=== PATIENT | male | born 1950 | race Caucasian/White ===

== ENCOUNTER 2022-08-04 16:18 | Emergency (ER) | payer OTHER ==
[~2022-08-04] VITALS: Ht 182.9 cm; Wt 110.0 kg
[2022-08-04 18:08] LABS: Basophils # (auto) 0.1 10 ^3/uL (0-0.2); Basophils % (auto) 0.7 % (0.0-2.0); Eosinophils # (auto) 0.1 10 ^3/uL (0-0.8); Eosinophils % (auto) 0.6 % (0.0-7.0); Hematocrit 45.3 % (41.0-53.0); Lymphocytes # (auto) 0.8 10 ^3/uL (0.4-5.4); Lymphocytes % (auto) 8.8 % (10.0-50.0); Mean Corpuscular Hemoglobin 29.5 pg (28.0-32.0); Mean Corpuscular Hgb Conc. 33.2 g/dL (32.0-36.0); Mean Corpuscular Volume 88.9 fL (80.0-100.0); Monocytes # (auto) 0.4 10 ^3/uL (0-1.3); Monocytes % (auto) 4.8 % (0.0-12.0); Neutrophils # (auto) 7.6 10 ^3/uL (1.6-8.6); Neutrophils % (auto) 85.1 % (37.0-80.0); Red Cell Distribution Width 13.5 % (11.8-14.3); White Blood Cell 8.9 10^3/uL (4.4-10.8)
[2022-08-04 18:26] LABS: Albumin 3.9 g/dL (3.4-5.0); BUN/Creatinine Ratio 12.7; Calcium 9.2 mg/dL (8.5-10.1); Potassium 4.6 mmol/L (3.5-5.1)
[2022-08-04 18:29] LABS: Bilirubin, Total 0.6 mg/dL (0.2-1.0); Total Protein 7.4 g/dL (6.4-8.2)
[2022-08-04] MEDS ORDERED: OXYCODONE W/ ACETAMINOPHEN 5/325MG TABLET PO ONE (21:15)
[2022-08-04] MEDS ORDERED: ONDANSETRON ODT 4 MG TAB PO ONE (21:15)
[2022-08-05] MEDS ORDERED: HYDROmorphone HCL 2 MG/ML VL/or syr IM ONE (01:00)
[2022-08-05] MEDS ORDERED: CIPR-173 PO (02:28)
[2022-08-05] MEDS ORDERED: FAMO20TA10 PO (02:28)
[2022-08-05] MEDS ORDERED: PERCOT PO (02:28)
[2022-08-05 03:04] VITALS: BP 132/79
== END 2022-08-05 03:15 | disposition home or self-care (01) ==
LOC: EDUNIT# 16:18 → ER 16:18 → EDBD 16:18 → ER 08-05 03:15
DX: K40.90 Unilateral inguinal hernia, without obstruction or gangrene, not specified as recurrent (principal)
CPT/HCPCS: 36415; 71045; 74176; 80053; 83690; 85025; 96372; 99285; Q0162